=== PATIENT | female | born 1975 | race Caucasian/White ===

== ENCOUNTER 2018-02-17 13:44 | Observation (INO) | payer OTHER ==
[~2018-02-17] VITALS: Ht 157.5 cm; Wt 63.5 kg
[~2018-02-17 13:44] MED LIST: VITAFOL ULTRA1 EACH PO
[2018-02-17 18:31] VITALS: BP 111/72
[2018-02-17 20:22] LABS: ABSOLUTE BASOPHIL COUNT 0 /CUMM (0.0-0.2); ABSOLUTE EOSINOPHIL COUNT 0 /CUMM (0.0-0.7); ABSOLUTE GRANULOCYTE CT 8.6 /CUMM (1.4-6.5); ABSOLUTE LYMPH COUNT 2.3 /CUMM (1.2-3.4); ABSOLUTE MONOCYTE COUNT 0.8 /CUMM (0.10-0.60); BASOPHIL % 0.2 % (0.0-2.0); EOSINOPHIL % 0.3 % (0-5); GRANULOCYTE % 73.7 % (42.2-75.2); HEMATOCRIT 32.4 % (37-47); MEAN CORPUSCULAR HGB 30.9 PG (27.0-31.0); MEAN CORPUSCULAR HGB CONC 33.8 G/DL (33.0-37.0); MEAN CORPUSCULAR VOLUME 91.4 FL (81.0-99.0); MEAN PLATELET VOLUME 8.6 FL (7.4-10.4); PLATELET COUNT 275 /CUMM (130-400); RBC DISTRIBUTION WIDTH 12.9 % (11.5-14.5); RED BLOOD CELL CT 3.54 /CUMM (4.20-5.40); WHITE BLOOD CELL COUNT 11.7 /CUMM (4.8-10.8)
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
== END 2018-02-18 11:29 ==
LOC: CBCO 13:44 → GNO 17:45
PROVIDERS: Obstetrics & Gynecology
DX: O47.1 False labor at or after 37 completed weeks of gestation (principal); Z3A.38 38 weeks gestation of pregnancy
CPT/HCPCS: 84112; 87086; 96360; G0378; G0463; J0131; J0696; J2405; J7120

== ENCOUNTER 2018-02-27 07:00 | Inpatient (IN) | payer OTHER ==
[~2018-02-27] VITALS: Ht 157.5 cm; Wt 63.0 kg
[2018-02-27 10:08] LABS: ABSOLUTE BASOPHIL COUNT 0 /CUMM (0.0-0.2); ABSOLUTE EOSINOPHIL COUNT 0 /CUMM (0.0-0.7); ABSOLUTE GRANULOCYTE CT 8.6 /CUMM (1.4-6.5); ABSOLUTE LYMPH COUNT 1.7 /CUMM (1.2-3.4); ABSOLUTE MONOCYTE COUNT 0.7 /CUMM (0.10-0.60); BASOPHIL % 0.3 % (0.0-2.0); EOSINOPHIL % 0.2 % (0-5); GRANULOCYTE % 77.7 % (42.2-75.2); HEMATOCRIT 35.6 % (37-47); MEAN CORPUSCULAR HGB 31.1 PG (27.0-31.0); MEAN CORPUSCULAR HGB CONC 34.2 G/DL (33.0-37.0); MEAN CORPUSCULAR VOLUME 90.8 FL (81.0-99.0); MEAN PLATELET VOLUME 8.2 FL (7.4-10.4); PLATELET COUNT 306 /CUMM (130-400); RBC DISTRIBUTION WIDTH 13.3 % (11.5-14.5); RED BLOOD CELL CT 3.92 /CUMM (4.20-5.40)
[2018-02-27 10:34] VITALS: BP 119/57
[2018-02-28 06:20] LABS: ABSOLUTE BASOPHIL COUNT 0 /CUMM (0.0-0.2); ABSOLUTE EOSINOPHIL COUNT 0 /CUMM (0.0-0.7); ABSOLUTE GRANULOCYTE CT 10.9 /CUMM (1.4-6.5); ABSOLUTE LYMPH COUNT 2.1 /CUMM (1.2-3.4); ABSOLUTE MONOCYTE COUNT 1.2 /CUMM (0.10-0.60); BASOPHIL % 0.2 % (0.0-2.0); EOSINOPHIL % 0.2 % (0-5); MEAN CORPUSCULAR HGB 31.1 PG (27.0-31.0); MEAN CORPUSCULAR HGB CONC 33.8 G/DL (33.0-37.0); MEAN PLATELET VOLUME 8.2 FL (7.4-10.4); PLATELET COUNT 295 /CUMM (130-400); RED BLOOD CELL CT 3.21 /CUMM (4.20-5.40); WHITE BLOOD CELL COUNT 14.3 /CUMM (4.8-10.8)
[2018-02-28 06:24] LABS: HEMATOCRIT 29.5 % (37-47)
--- NOTE | 2018-02-28 09:48 | Operative Report ---
Operative/Inv Procedure Report Surgery Date: 02/27/18 Name of Procedure: Repeat section Pre-Operative Diagnosis: Previous Post-Operative Diagnosis: Same Estimated Blood Loss: 650 mL Surgeon/Director Of Digital Technology: Cheikh Escalona MD,Matthias Valera M.D. Anesthesia: spinal Operative/Procedure Note Note: The patient is brought to the operating room placed on the OR table in the sitting position where she underwent spinal anesthetic without complication. Venodyne boots were placed and activated. She was placed into dorsal supine and prepped and draped in usual sterile fashion. A Dimas catheter was placed as well. A Pfannenstiel skin incision was made with the scalpel and taken down to layer of the fascia. The fascia was nicked in the midline and extended bilaterally. The underlying rectus muscles were and the perineal cavity was entered bluntly. A Mayuri bladder blade was inserted to protect the bladder from the operative field. A bladder flap was created using Metzenbaum scissors and placed behind the Mayuri blade. A low transverse uterine incision was made with the scalpel and extended bilaterally. A liveborn was delivered atraumatically and handed off to the waiting contact center assistant. The uterus was exteriorized and the placenta was removed intact three-vessel cord. The lining of the uterus was cleaned with a wet lap sponge. The uterine incision was then closed in 2 layers of 0 Polysorb the second imbricating the first. The abdomen and pelvis were copiously irrigated and uterus is placed back into the abdominal cavity. Suture line was once again visualized and noted to be hemostatic. The peritoneal cavity was closed with 2-0 Polysorb in a running nonlocking fashion. Rectus muscles reapproximated with 0 Polysorb and one interrupted suture in the fascia was closed with 0 Polysorb in a running nonlocking fashion. Subcutaneous tissues were then irrigated and coagulated were needed. Skin was closed using tara a dry sterile dressing was applied to the wound patient was then sent to recovery in good condition. All needle, sponge, and inspected counts are correct at end the procedure 2.
--- NOTE | 2018-02-28 09:50 | Labor & Delivery Summary ---
Delivery Summary Section: Section: to Placenta: Placenta: normal, 3 vessel, manual Anesthesia: spinal Baby's Weight: 6-8 Apgars - 1 Min: 9 Apgars - 5 Min: 9
--- NOTE | 2018-03-01 08:50 | PN- Post Delivery/GYN ---
Subjective Subjective: c/o nausea Review of Systems: nausea Objective Last 24 Hrs of Vital Signs/I&O vss afebrile Physical Exam: incision c/d/i abd soft nT Ext NT Assessment/Plan Assessment/Plan s/p C/S pod2 w nausea Zofran q6 prn probable discharge tomrrow Problem List: 1. Previous section
[2018-03-02] MEDS ORDERED: IBUPROFEN800 M1 PO (07:29)
[2018-03-02] MEDS ORDERED: ONDANSETRON ODT4 M1 PO (07:29)
[2018-03-02] MEDS ORDERED: DOCUSATE SODIU100 M3 PO (07:29)
[2018-03-02] MEDS ORDERED: HYDROCODON-ACE1 EAC2 PO (07:29)
== END 2018-03-02 11:00 | DRG 540 ==
LOC: GNO 07:00
PROVIDERS: Obstetrics & Gynecology
PROC: 10D00Z1 Extraction of Products of Conception, Low, Open Approach (ICD-10-PCS; principal; 2018-02-27)
DX: O34.211 Maternal care for low transverse scar from previous cesarean delivery (principal); N85.8 Other specified noninflammatory disorders of uterus; Z3A.39 39 weeks gestation of pregnancy; Z37.0 Single live birth
CPT/HCPCS: GNOS; 80307; 81003; 86920; 87086; J0131; J0690; J1200; J1885; J3101; J7120